=== PATIENT | female | born 1975 | race Caucasian/White ===

== ENCOUNTER → 2020-06-16 | Outpatient (CLI) | payer MEDICARE ==
[2020-06-16 15:19] LABS: Basophils % (A) 0 %; Eosinophils % (A) 1 %; HCT 44.1 % (34.0-46.0); HGB 14.5 gm/dL (11.4-16.0); Lymphocytes # (A) 2.4 k/uL (1.0-4.8); Lymphocytes % (A) 31 %; MCH 29.7 pg (25.0-35.0); MCHC 32.9 g/dL (31.0-37.0); MCV 90.5 fL (80.0-100.0); Mean Platelet Volume 6.8; Monocytes # (A) 0.3 k/uL (0-1.0); Monocytes % (A) 4 %; Neutrophils # (A) 5.1 k/uL (1.3-7.7); Neutrophils % (A) 64 %; Platelet Count 363 k/uL (150-450); RBC 4.88 m/uL (3.80-5.40); RDW 12.5 % (11.5-15.5); WBC 7.9 k/uL (3.8-10.6)
[2020-06-16 19:54] LABS: % Iron Saturation 32.21 (12.00-45.00); African American GFR (CKD) 79.3 (60.0-200.0); Albumin 4.7 g/dL (3.80-4.90); Albumin/Globulin Ratio 1.81 (1.60-3.17); Anion Gap 6.9 mmol/L (4.00-12.00); C Reactive Protein, High Sens 5.58 mg/L (0.000-3.000); Carbon Dioxide 26.1 mmol/L (21.6-31.8); Chol/HDL Ratio 3.63; Globulin 2.6 g/dL (1.6-3.3); LDL Cholesterol,Calculated 117.6 mg/dL (0.0-131.0); Non-African American GFR(CKD) 68.5 (60.0-200.0); Potassium 4.4 mmol/L (3.5-5.5); Total Bilirubin 0.5 mg/dL (0.3-1.2); Total Protein 7.3 g/dL (6.2-8.2); VLDL Calculation 16.4 mg/dL (5.00-40.00)
[2020-06-16 20:01] LABS: Ferritin 59.7 ng/mL (10.0-291.0); T4, Free (Free Thyroxine) 1.2 ng/dL (0.80-1.80)
[2020-06-17 01:01] LABS: Hemoglobin A1C 5.2 % (4.0-6.0)
== END | disposition home or self-care (01) ==
LOC: LABWHC1 14:39
PROVIDERS: ATTEND Family Medicine
DX: E78.2 Mixed hyperlipidemia (principal); E03.8 Other specified hypothyroidism; R53.83 Other fatigue
CPT/HCPCS: 36415; 80053; 80061; 82306; 82607; 82728; 83036; 83540; 83550; 84439; 84443; 84466; 84481; 85025; 86141

== ENCOUNTER → 2021-12-05 | Outpatient (CLI) | payer OTHER ==
--- NOTE | 2021-12-07 11:45 | MM ---
Reason for exam: screening (asymptomatic). Baseline mammogram. History: Patient is postmenopausal. Family history of breast cancer in maternal grandmother at age 65 and breast cancer in maternal aunt at age 45. Took hormonal contraceptives for 5 years beginning at age 21. Physical Findings: Nurse did not find any significant physical abnormalities on exam. MG Screening Mammo w CAD Bilateral CC, MLO, and XCCL view(s) were taken. There are scattered fibroglandular densities. There is no discrete abnormality. ASSESSMENT: Negative, BI-RAD 1 RECOMMENDATION: Routine screening mammogram of both breasts in 1 year.
== END | disposition home or self-care (01) ==
LOC: RADMAMWWP 14:02
DX: Z12.31 Encounter for screening mammogram for malignant neoplasm of breast (principal); Z78.0 Asymptomatic menopausal state; Z80.3 Family history of malignant neoplasm of breast
CPT/HCPCS: 77067

== ENCOUNTER → 2021-12-14 | Outpatient (CLI) | payer OTHER ==
--- NOTE | 2021-12-14 21:43 | CT ---
EXAMINATION TYPE: CT chest w con DATE OF EXAM: 12/14/2021 COMPARISON: None HISTORY: Atresia of aorta CT DLP: 521.80 mGycm Automated exposure control for dose reduction was used. CONTRAST: CT scan of the chest is performed with IV Contrast, patient injected with 100 mL of Isovue 300. FINDINGS: LUNGS: The lungs are grossly clear, there is no concerning parenchymal mass or nodule identified. T here is no pleural effusion or pneumothorax seen. The tracheobronchial tree is patent. MEDIASTINUM: There are no greater than 1 cm hilar or mediastinal lymph nodes. No pericardial effusi on is seen. The heart is small. AORTA: No additional significant abnormality is seen. Aorta shows normal caliber, no evident aneurys m, aortic root is borderline 41 mm, 2 super aortic branch vessels are present. Pericardial recess tess ewhat prominent OTHER: Cystic focus is present within the splenic hilum is some marginal calcification measuring 2 c m. There is mild pectus deformity. Liver shows low attenuation likely due to hepatic steatosis, some degenerative disc changes are noted in the lower thoracic spine, there is a spinal curvature. Splenul es present within the renal hilum. 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 IMPRESSION: Nonspecific findings described above.
== END | disposition home or self-care (01) ==
LOC: RADCTMAIN 16:34
DX: M51.34 Other intervertebral disc degeneration, thoracic region (principal); M43.8X9 Other specified deforming dorsopathies, site unspecified; D73.4 Cyst of spleen; Q67.8 Other congenital deformities of chest
CPT/HCPCS: 71260; Q9967

== ENCOUNTER → 2022-03-04 | Outpatient (CLI) | payer OTHER ==
[2022-03-04 18:59] LABS: Basophils # (A) 0.03 X 10*3/uL (0.00-0.10); Basophils % (A) 0.4 %; Eosinophils # (A) 0.16 X 10*3/uL (0.04-0.35); Eosinophils % (A) 2.1 %; HCT 41.5 % (37.2-46.3); HGB 14.4 g/dL (12.0-15.0); Immature Grans, Automated 0.3 %; Lymphocytes # (A) 2.54 X 10*3/uL (0.90-5.00); MCHC 34.7 g/dL (32.0-37.0); MCV 89.4 fL (80.0-97.0); Mean Platelet Volume 10.2 fL (9.5-12.2); Monocytes # (A) 0.49 X 10*3/uL (0.20-1.00); Monocytes % (A) 6.6 %; NRBC Per 100 WBC 0 /100 WBCS (0.0-0.0); Neutrophils # (A) 4.24 X 10*3/uL (1.80-7.70); Neutrophils % (A) 56.6 %; Platelet Count 376 X 10*3/uL (140-440); RBC 4.64 X 10*6/uL (4.10-5.20); RDW 12.9 % (11.5-14.5); WBC 7.48 X 10*3/uL (4.50-10.00)
[2022-03-04 19:06] LABS: Erythrocyte Sedimentation Rate 22 mm/Hr (0-20)
[2022-03-04 20:25] LABS: ALT 12 U/L (8-44); AST 22 U/L (13-35); African American GFR (CKD) 92.1 (60.0-200.0); Albumin 4.8 g/dL (3.8-4.9); Albumin/Globulin Ratio 2.01 (1.60-3.17); Alkaline Phosphatase 83 U/L (41-126); BUN/Creat Ratio 17.51 Ratio (12.00-20.00); Blood Urea Nitrogen 15.3 mg/dL (9.0-27.0); Carbon Dioxide 22.5 mmol/L (20.0-27.5); Chloride 104 mmol/L (96-109); Globulin 2.4 g/dL (1.6-3.3); Glucose 83 mg/dL (70-110); LDL Cholesterol,Calculated 86.4 mg/dL (0.0-131.0); Non-African American GFR(CKD) 79.5 (60.0-200.0); Potassium 4.8 mmol/L (3.5-5.5); Sodium 140 mmol/L (135-145); Total Protein 7.2 g/dL (6.2-8.2)
== END | disposition home or self-care (01) ==
LOC: LABWHC1 13:01
PROVIDERS: ATTEND Family Medicine
DX: E03.8 Other specified hypothyroidism (principal); E55.9 Vitamin D deficiency, unspecified; E78.2 Mixed hyperlipidemia; R53.83 Other fatigue
CPT/HCPCS: 36415; 80053; 80061; 82306; 82607; 83525; 84439; 84443; 84481; 85025; 85652; 86141

== ENCOUNTER → 2023-06-25 | Outpatient (CLI) | payer OTHER ==
--- NOTE | 2023-06-25 08:59 | MM ---
Reason for Exam: Follow-up at short interval from prior study. Last screening mammogram was performed 7 month(s) ago. Patient History: Menarche at age 13. First Full-Term at age 21. Postmenopausal. Patient has history of breast feeding. Patient tested for BRCA1 outcome was negative. Patient tested for BRCA2 outcome was negative. Hormonal Contraceptives for 5 years from age 21 until age 26. Maternal grandmother had breast cancer, age 65. Maternal aunt had breast cancer, age 45. Paternal cousin had breast cancer, age 45. Risk Values: Yaz 5 year model risk: 0.8%. NCI Lifetime model risk: 8.4%. Prior Study Comparison: 12/05/2021 Bilateral Screening Mammogram, [facility]. 12/06/2022 Bilateral MG screening mammo w CAD, [facility]. 12/19/2022 Left MG work up mamm w CAD LT, [facility]. Tissue Density: Left: There are scattered fibroglandular densities. Findings: Analyzed By CAD. Pattern appears stable. No persistent suspicious nodularity is identified. No suspicious groups of microcalcifications, spiculated or lobular masses, architectural distortion or other secondary signs of malignancy are mammographically apparent. Overall Assessment: Negative, BI-RAD 1 Management: Screening Mammogram of both breasts in 6 months. A negative mammogram report should not preclude additional follow up of suspicious palpable abnormalities. Patient should continue monthly self breast exam. A clinical breast exam by your physician is recommended on an annual basis and results should be correlated with mammographic findings. Electronically signed and approved by: Esequiel Johnston D.O. Radiologis
== END | disposition home or self-care (01) ==
LOC: RADMAMWWP 08:37
DX: R92.8 Other abnormal and inconclusive findings on diagnostic imaging of breast (principal); Z78.0 Asymptomatic menopausal state; Z80.3 Family history of malignant neoplasm of breast
CPT/HCPCS: 77061; 77065

== ENCOUNTER → 2023-12-25 | Outpatient (CLI) | payer OTHER ==
--- NOTE | 2023-12-26 08:29 | MM ---
Reason for Exam: Screening (asymptomatic). Last mammogram was performed 1 year(s) and 1 month(s) ago. Patient History: Menarche at age 13. First Full-Term at age 21. Postmenopausal. Patient has history of breast feeding. Patient tested for BRCA1 outcome was negative. Patient tested for BRCA2 outcome was negative. Hormonal Contraceptives for 5 years from age 21 until age 26. Maternal grandmother had breast cancer, age 65. Maternal aunt had breast cancer, age 45. Paternal cousin had breast cancer, age 45. Risk Values: Yaz 5 year model risk: 0.8%. NCI Lifetime model risk: 8.4%. Prior Study Comparison: 12/06/2022 Bilateral MG screening mammo w CAD, [facility]. 12/19/2022 Left MG work up mamm w CAD LT, [facility]. 06/25/2023 Left MG 3D diag mammo w/cad LT, [facility]. Tissue Density: There are scattered areas of fibroglandular density. Findings: Analyzed By CAD. Asymmetric density upper outer right breast 8 cm from the nipple. Additional views recommended. No left breast mass is identified. No suspicious calcified patient's present. Overall Assessment: Incomplete: need additional imaging evaluation, BI-RAD 0 Management: Diagnostic Mammogram of the right breast. . Patient should continue monthly self-breast exams. A clinical breast exam by your physician is recommended on an annual basis. This exam should not preclude additional follow-up of suspicious palpable abnormalities. Note on Yaz scores and lifetime risk: 1. A Yaz score greater than 3% is considered moderate risk. If this is the case, consider specialist referral to assess eligibility for a risk reducing agent. 2. If overall lifetime risk for the development of breast cancer is 20% or higher, the patient may qualify for future screening with alternating mammogram and breast MRI. Electronically signed and approved by: Lucio Colin M.D. Radiologis
== END | disposition home or self-care (01) ==
LOC: RADMAMWWP 10:26
PROVIDERS: ATTEND Family Medicine
DX: Z12.31 Encounter for screening mammogram for malignant neoplasm of breast (principal); Z80.3 Family history of malignant neoplasm of breast; Z78.0 Asymptomatic menopausal state
CPT/HCPCS: 77063; 77067

== ENCOUNTER → 2023-12-30 | Outpatient (CLI) | payer OTHER ==
--- NOTE | 2023-12-30 10:13 | MM ---
Reason for Exam: Additional evaluation requested from abnormal screening. Last screening mammogram was performed less than 1 month ago. Patient History: Menarche at age 13. First Full-Term at age 21. Postmenopausal. Patient has history of breast feeding. Patient tested for BRCA1 outcome was negative. Patient tested for BRCA2 outcome was negative. Hormonal Contraceptives for 5 year from age 21 until age 26. Maternal grandmother had breast cancer, age 65. Maternal aunt had breast cancer, age 45. Paternal cousin had breast cancer, age 45. Risk Values: Yaz 5 year model risk: 0.8%. NCI Lifetime model risk: 8.4%. Prior Study Comparison: 12/05/2021 Bilateral Screening Mammogram, [facility]. 12/06/2022 Bilateral MG screening mammo w CAD, [facility]. 12/19/2022 Left MG work up mamm w CAD LT, [facility]. 06/25/2023 Left MG 3D diag mammo w/cad LT, [facility]. 12/25/2023 Bilateral MG 3D screening mammo w/cad, [facility]. Tissue Density: Right: There are scattered areas of fibroglandular density. Findings: Analyzed By CAD. Right upper outer quadrant focal asymmetry disperses on additional views. No persisting suspicious density is seen. Findings compatible with superimposition shadow. No significant change from prior exams. Overall Assessment: Benign, BI-RAD 2 Management: Screening Mammogram of both breasts in 1 year. . Results were given to the patient verbally at the time of exam. Patient should continue monthly self-breast exams. A clinical breast exam by your physician is recommended on an annual basis. This exam should not preclude additional follow-up of suspicious palpable abnormalities. Note on Yaz scores and lifetime risk: 1. A Yaz score greater than 3% is considered moderate risk. If this is the case, consider specialist referral to assess eligibility for a risk reducing agent. 2. If overall lifetime risk for the development of breast cancer is 20% or higher, the patient may qualify for future screening with alternating mammogram and breast MRI. Electronically signed and approved by: Mary Alice Chambers M.D. Radiologist
== END | disposition home or self-care (01) ==
LOC: RADMAMWWP 07:57
PROVIDERS: ATTEND Family Medicine
DX: R92.321 Mammographic fibroglandular density, right breast (principal); Z80.3 Family history of malignant neoplasm of breast; Z78.0 Asymptomatic menopausal state
CPT/HCPCS: 77061; 77065

== ENCOUNTER → 2024-01-16 | Outpatient (CLI) | payer OTHER ==
--- NOTE | 2024-01-16 13:00 | FL ---
Fluoroscopy for sniff test diaphragm evaluation INDICATION: Difficulty breathing FINDINGS: Fluoroscopy time: 32 seconds. Total dose area product (DAP) in uGy*m?, mGy*cm? (or similar): 176.91 Images obtained: 77. Air findings: With quiet breathing there is diminished excursion of the right di aphragm compared to the left. With sniffing, some mild paradoxical motion of the right diaphragm compared to the left is evident. IMPRESSION: 1. 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
== END | disposition home or self-care (01) ==
LOC: RADUSWWP 09:23
PROVIDERS: ATTEND Internal Medicine Critical Care Medicine
DX: J98.6 Disorders of diaphragm (principal); R06.00 Dyspnea, unspecified
CPT/HCPCS: 76000

== ENCOUNTER → 2024-12-30 | Outpatient (CLI) | payer OTHER ==
--- NOTE | 2024-12-30 15:23 | MM ---
Reason for Exam: Screening (asymptomatic). Last screening mammogram was performed 12 month(s) ago. Patient History: Menarche at age 13. First Full-Term at age 21. Postmenopausal. Patient has history of breast feeding. Patient tested for BRCA1 outcome was negative. Patient tested for BRCA2 outcome was negative. Hormonal Contraceptives for 5 years from age 21 until age 26. Maternal grandmother had breast cancer, age 65. Maternal aunt had breast cancer, age 45. Paternal cousin had breast cancer, age 45. Risk Values: Yaz 5 year model risk: 0.8%. NCI Lifetime model risk: 8.3%. Prior Study Comparison: 06/25/2023 Left MG 3D diag mammo w/cad LT, [facility]. 12/25/2023 Bilateral MG 3D screening mammo w/cad, [facility]. 12/30/2023 Right MG 3D work up w/cad RT, [facility]. Tissue Density: The breasts are heterogeneously dense, which may obscure small masses. Findings: Analyzed By CAD. Asymmetric density which appears to be increasing with mild distortion. Additional views are recommended upper outer right breast. No additional areas of distortion. No suspicious microcalcifications. Overall Assessment: Incomplete: need additional imaging evaluation, BI-RAD 0 Management: Diagnostic Mammogram of the right breast. . Patient should continue monthly self-breast exams. A clinical breast exam by your physician is recommended on an annual basis. This exam should not preclude additional follow-up of suspicious palpable abnormalities. Note on Yaz scores and lifetime risk: 1. A Ayz score greater than 3% is considered moderate risk. If this is the case, consider specialist referral to assess eligibility for a risk reducing agent. 2. If overall lifetime risk for the development of breast cancer is 20% or higher, the patient may qualify for future screening with alternating mammogram and breast MRI. [facility], , 12/30/2024 3:21 PM. Electronically signed and approved by: Lucio Colin M.D. Radiologis
== END | disposition home or self-care (01) ==
LOC: RADMAMWWP 13:51
PROVIDERS: ATTEND Family Medicine
DX: Z12.31 Encounter for screening mammogram for malignant neoplasm of breast (principal); R92.333 Mammographic heterogeneous density, bilateral breasts; Z78.0 Asymptomatic menopausal state; Z80.3 Family history of malignant neoplasm of breast; Z92.0 Personal history of contraception
CPT/HCPCS: 77063; 77067

== ENCOUNTER → 2025-01-04 | Outpatient (CLI) | payer OTHER ==
--- NOTE | 2025-01-04 13:22 | MM ---
Reason for Exam: Additional evaluation requested from abnormal screening. Last screening mammogram was performed less than 1 month ago. Patient History: Menarche at age 13. First Full-Term at age 21. Postmenopausal. Patient has history of breast feeding. Patient tested for BRCA1 outcome was negative. Patient tested for BRCA2 outcome was negative. Hormonal Contraceptives for 5 years from age 21 until age 26. Maternal grandmother had breast cancer, age 65. Maternal aunt had breast cancer, age 45. Paternal cousin had breast cancer, age 45. Risk Values: Yaz 5 year model risk: 0.8%. NCI Lifetime model risk: 8.3%. Prior Study Comparison: 12/05/2021 Bilateral Screening Mammogram, [facility]. 12/06/2022 Bilateral MG screening mammo w CAD, [facility]. 12/19/2022 Left MG work up mamm w CAD LT, [facility]. 06/25/2023 Left MG 3D diag mammo w/cad LT, [facility]. 12/25/2023 Bilateral MG 3D screening mammo w/cad, [facility]. 12/30/2023 Right MG 3D work up w/cad RT, [facility]. 12/30/2024 Bilateral MG 3D screening mammo w/cad, [facility]. Tissue Density: Right: There are scattered areas of fibroglandular density. Findings: Analyzed By CAD. Asymmetric prominent tissue upper outer aspect is similar to prior studies and additional views. No new mass persists on additional views. Overall Assessment: Negative, BI-RAD 1 Management: Screening Mammogram of both breasts in 1 year. Return to routine follow-up. Results were given to the patient verbally at the time of exam. Patient should continue monthly self-breast exams. A clinical breast exam by your physician is recommended on an annual basis. This exam should not preclude additional follow-up of suspicious palpable abnormalities. Note on Yaz scores and lifetime risk: 1. A Yaz score greater than 3% is considered moderate risk. If this is the case, consider specialist referral to assess eligibility for a risk reducing agent. 2. If overall lifetime risk for the development of breast cancer is 20% or higher, the patient may qualify for future screening with alternating mammogram and breast MRI. [facility], , 01/04/2025 1:19 PM. Electronically signed and approved by: Yfn Nicholson M.D.
== END | disposition home or self-care (01) ==
LOC: RADMAMWWP 12:48
PROVIDERS: ATTEND Family Medicine
DX: R92.8 Other abnormal and inconclusive findings on diagnostic imaging of breast (principal); R92.321 Mammographic fibroglandular density, right breast; Z78.0 Asymptomatic menopausal state; Z80.3 Family history of malignant neoplasm of breast; Z92.0 Personal history of contraception
CPT/HCPCS: 77061; 77065